=== PATIENT | male | born 1960 | race African-American/Black ===

== ENCOUNTER 2018-07-25 12:26 | Emergency (ER) | payer MEDICAID ==
[~2018-07-25] VITALS: Ht 170.2 cm; Wt 92.5 kg
[2018-07-25 12:26] VITALS: BP 162/94
[~2018-07-25 12:26] MED LIST: artane; aspirin; dilantin; haldol; keppra; lamictal
[2018-07-25] MEDS ORDERED: Phenytoin 100mg cap ORAL ONE ×2 (12:30→14:49)
[2018-07-25] MEDS ORDERED: LORazepam Inj 2mg/ml 1ml IV ONE (12:30)
[2018-07-25] MEDS ORDERED: levETIRAcetam 1,000mg/NS100ml 100 ML IVPB ONE (12:30)
[2018-07-25] MEDS ORDERED: TRIHEXYPHEN2 MG/5 ML ORAL (12:35)
[2018-07-25] MEDS ORDERED: HALOPERIDOL10 MG ORAL (12:35)
[2018-07-25] MEDS ORDERED: REMERON30 M1 ORAL (12:35)
[2018-07-25] MEDS ORDERED: COLACE250 MG ORAL (12:35)
[2018-07-25] MEDS ORDERED: LATUDA120 MG PO (12:35)
[2018-07-25] MEDS ORDERED: NAPROXEN250 M1 PO (12:35)
[2018-07-25 13:24] LABS: BASOPHILS % (AUTO) 1.3 % (0.0-2.0); EOSINOPHILS % (AUTO) 3.6 % (0.0-3.0); HEMATOCRIT 37.9 % (42.0-52.0); HEMOGLOBIN 12.5 G/DL (14.2-18.0); LYMPHOCYTES % (AUTO) 47.1 % (20.0-45.0); MEAN CORPUSCULAR VOLUME 86 FL (80-99); MONOCYTES % (AUTO) 9.9 % (1.0-10.0); NEUTROPHILS % (AUTO) 38.1 % (45.0-75.0); PLATELET COUNT 175 K/UL (150-450); RED BLOOD COUNT 4.42 M/UL (4.70-6.10); RED CELL DISTRIBUTION WIDTH 13.8 % (11.6-14.8); WHITE BLOOD COUNT 3.6 K/UL (4.8-10.8)
[2018-07-25 13:26] LABS: ANION GAP 8 mmol/L (5-15); BLOOD UREA NITROGEN 11 mg/dL (7-18); CALCIUM 9.3 MG/DL (8.5-10.1); CARBON DIOXIDE 26 MMOL/L (21-32); CHLORIDE 104 MMOL/L (98-107); POTASSIUM 4.5 MMOL/L (3.5-5.1); SODIUM 138 MMOL/L (136-145)
[2018-07-25 13:31] LABS: ALANINE AMINOTRANSFERASE 31 U/L (12-78); ALBUMIN 3.9 G/DL (3.4-5.0); ALKALINE PHOSPHATASE 108 U/L (46-116); ASPARTATE AMINO TRANSFERASE 16 U/L (15-37); BILIRUBIN,TOTAL 0.3 MG/DL (0.2-1.0)
--- NOTE | 2018-07-25 13:58 | Diagnostic Imaging Report ---
Indications: Seizures Technique: Spiral acquisitions obtained through the brain. Angled axial and coronal 5 x 5 mm slices were reconstructed. Total dose length product 1369.05 mGycm. CTDI vol(s) 70.38 mGy. Dose reduction achieved using automated exposure control Comparison: None. Findings: No acute intracranial hemorrhage or edema. No mass effect nor midline shift. Normal size ventricles and extra axial CSF spaces. Normal lamar-white differentiation. Visualized orbits and sinuses are unremarkable. The mastoids are clear. The calvarium is intact. Impression: Negative The CT scanner at [facility] is accredited by the [employer] and the scans are performed using protocols designed to limit radiation exposure to as low as reasonably achievable to attain images of sufficient resolution adequate for diagnostic evaluation.
[2018-07-25 14:08] VITALS: BP 162/94
--- NOTE | 2018-07-25 14:21 | NUR ---
ED Nurse Note: contacted pharmacy to restock dilantin
--- NOTE | 2018-07-25 15:39 | Emergency Room Report ---
History of Present Illness General Chief Complaint: Seizure Source: Patient, EMS Present Illness HPI Patient has history of seizures. He is noncompliant with medications. He did not take medication yesterday because he did not have them. Patient however hasn't now because his medications was a custodial yesterday finally got them today. He apparently had a seizure this morning he states that he his head. He is complaining of severe headache. He denies any neck pain chest pain shortness breath. He was initially postictal but now improved. His seizure was witnessed and a grand mal seizure. He denies biting his tongue or urinary incontinence. No other complaints are noted. Symptoms noted to be moderate. Patient denies any chest pain shortness of breath. No other modifying factors. No other associated signs and symptoms. No other complaints were noted. Allergies: Coded Allergies: DIVALPROEX SODIUM (Verified Allergy, Unknown, 09/24/12) PENICILLINS (Verified Allergy, Unknown, 09/24/12) Uncoded Allergies: PENICILLIN (Allergy, Unknown, 07/25/18) Patient History Past Medical History: seizures Past Surgical History: none Pertinent Family History: none Social History: Denies: smoking, alcohol use, drug use Reviewed Nursing Documentation: PMH: Agreed; PSxH: Agreed Nursing Documentation-PMH Hx Diabetes: Yes - prediabetes Hx Seizures: Yes Review of Systems All Other Systems: negative except mentioned in HPI Physical Exam Vital Signs Date Time Temp Pulse Resp B/P (MAP) Pulse Ox O2 Delivery O2 Flow Rate FiO2 07/25/18 12:21 98.8 78 20 162/94 100 Room Air Sp02 EP Interpretation: reviewed, normal General Appearance: alert, mild distress - Due to pain Head: atraumatic Eyes: bilateral eye normal inspection ENT: normal ENT inspection, hearing grossly normal, normal voice Neck: normal inspection, full range of motion, supple, no bony tend Respiratory: normal inspection, lungs clear, normal breath sounds, no respiratory distress, no retraction, no wheezing Cardiovascular #1: regular rate, rhythm, no edema Gastrointestinal: normal inspection, normal bowel sounds, non tender, soft, no guarding, no hernia Genitourinary: no CVA tenderness Musculoskeletal: normal inspection, back normal, normal range of motion Neurologic: normal inspection, alert, responsive, speech normal Psychiatric: normal inspection, judgement/insight normal, mood/affect normal Skin: normal inspection, normal color, no rash Medical Decision Making Diagnostic Impression: Primary Impression: Epileptic seizure, generalized ER Course Patient presents emergency department today complaining of altered mental status. Differential considerations include recurrent seizures, drug abuse, medication noncompliance, intracranial hemorrhage, cranial tumor just to name a few. Given the severity of the patient's presentation I felt this is a highly complex patient. This patient required extensive workup. Patient's laboratory workup was within normal limits. Patient's CAT scan was also negative. Patient had a lapse of consciousness. Therefore patient is at risk of hurting himself or others while he drives. Patient was informed of this. He was advised not to drive. 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 Patient was monitored in emergency department until he became more more conscious and awake. Patient was given Keppra and Dilantin. When patient was stable patient was discharged.Patient is advised to follow up with primary doctor in 2-3 days and return the emergency room for any worsening symptoms and as needed. Labs Test 07/25/18 12:50 White Blood Count 3.6 K/UL (4.8-10.8) Red Blood Count 4.42 M/UL (4.70-6.10) Hemoglobin 12.5 G/DL (14.2-18.0) Hematocrit 37.9 % (42.0-52.0) Mean Corpuscular Volume 86 FL (80-99) Mean Corpuscular Hemoglobin 28.3 PG (27.0-31.0) Mean Corpuscular Hemoglobin Concent 33.0 G/DL (32.0-36.0) Red Cell Distribution Width 13.8 % (11.6-14.8) Platelet Count 175 K/UL (150-450) Mean Platelet Volume 7.8 FL (6.5-10.1) Neutrophils (%) (Auto) 38.1 % (45.0-75.0) Lymphocytes (%) (Auto) 47.1 % (20.0-45.0) Monocytes (%) (Auto) 9.9 % (1.0-10.0) Eosinophils (%) (Auto) 3.6 % (0.0-3.0) Basophils (%) (Auto) 1.3 % (0.0-2.0) Sodium Level 138 MMOL/L (136-145) Potassium Level 4.5 MMOL/L (3.5-5.1) Chloride Level 104 MMOL/L (98-107) Carbon Dioxide Level 26 MMOL/L (21-32) Anion Gap 8 mmol/L (5-15) Blood Urea Nitrogen 11 mg/dL (7-18) Creatinine 1.0 MG/DL (0.55-1.30) Estimat Glomerular Filtration Rate > 60 mL/min (>60) Glucose Level 103 MG/DL (74-106) Calcium Level 9.3 MG/DL (8.5-10.1) Total Bilirubin 0.3 MG/DL (0.2-1.0) Aspartate Amino Transf (AST/SGOT) 16 U/L (15-37) Alanine Aminotransferase (ALT/SGPT) 31 U/L (12-78) Alkaline Phosphatase 108 U/L (46-116) Troponin I 0.007 ng/mL (0.000-0.056) Total Protein 7.7 G/DL (6.4-8.2) Albumin 3.9 G/DL (3.4-5.0) Globulin 3.8 g/dL Albumin/Globulin Ratio 1.0 (1.0-2.7) Phenytoin (Dilantin) Level 14.2 ug/mL (10-20) EKG Diagnostic Results Rate: normal Rhythm: NSR ST Segments: no acute changes Rhythm Strip Diag. Results EP Interpretation: yes Rate: 64 Rhythm: NSR, no PVC's, no ectopy CT/MRI/US Diagnostic Results CT/MRI/US Diagnostic Results : Imaging Test Ordered: CT head: Negative Last Vital Signs Date Time Temp Pulse Resp B/P (MAP) Pulse Ox O2 Delivery O2 Flow Rate FiO2 07/25/18 12:42 78 20 Room Air 07/25/18 12:21 98.8 162/94 100 Status: improved Disposition: HOME, SELF-CARE Condition: Stable Referrals: [facility]ERR[facility] (PCP) Patient Instructions: Seizure, Adult Additional Instructions: Please give patient better bed/hospital bed at custodial if available. Av Penaloza MD Jul 25, 2018 15:39
--- NOTE | 2018-07-26 17:39 | Cardiology Report ---
APPROVED REPORT EKG Measurement Heart [id number] HI [id number] Normal sinus rhythm Normal ECG
== END 2018-07-25 14:04 | disposition home or self-care (01) ==
LOC: EDBD 12:26 → EMR 13:12
DX: G40.409 Other generalized epilepsy and epileptic syndromes, not intractable, without status epilepticus (principal); Z91.14 Patient's other noncompliance with medication regimen; Z88.0 Allergy status to penicillin; Z88.8 Allergy status to other drugs, medicaments and biological substances
CPT/HCPCS: 36415; 70450; 80053; 80185; 84484; 85025; 93005; 96374; 96375; 99284; J1953